=== PATIENT | male | born 1990 | race Caucasian/White ===

== ENCOUNTER 2017-05-17 15:01 | Emergency (ER) | payer MEDICAID ==
[~2017-05-17] VITALS: Ht 188 cm; Wt 86.2 kg
[2017-05-17] MEDS ORDERED: AUGMENTIN 875-1 EACH PO (16:10)
--- NOTE | 2017-05-17 16:11 | [facility]gent Treatment Center Report ---
History of Present Issue Date/Time Seen by Provider 05/17/17 1542 Visit Reason Pt arrived:Walked Presenting Problem:RT SIDE F FACE SWOLLEN AND COMPLAINS OF DENTAL PAIN X3 DAYS. ALSO WANTS TO GET LUMPS ON HIS LOWER BACK CHECKED BEEN THERE X2 WEEKS. Location if Accident: Onset of symptoms date/time:/ or onset unknown for:MEDICAL HX UNKNOWN Have you (or family members/close friends) recently traveled outside the [place]? N If Yes, where/when: Have you had exposure to infectious disease within the past month? TB? Other? Specify: Patient presents with with c/o tooth pain that started approximately 1 week ago. States he has had similiar issues for the last 2 years. Has not been to the dentist in several years and currently does not have a dentist. Rates pain "6/10 " and describes pain as aching and throbbing. Has been taking ibuprofen with mild relief. Denies fever/chills. ALLERGIES Coded Allergies: No Known Allergies (05/17/17) History Medical History General Angina: No VA: No Hypertension? No Hyperlipidemia? No CHF? No DVT? No PE? No COPD? No Asthma? No Anemia? No GERD? No Gastric ulcers? No GI Bleed? No Hernia? No Thyroid Problems? No Hypothyroidism? No CVA? No Seizures? No Diabetes? No UTI? No Stones? No BPH? No GB Disease: No Asplenia? No Hepatitis? No Sickle Cell Disease? No Arthritis? No Migraines? No Cataracts? No Glaucoma? No MRSA? No TB? No Anxiety? No Depression? No Cancer? No Site: N More? No Immunization HX DT/Tetanus 5-10 Years Ago Surgical Hx Previous Surgery?N Social History Smoking Hx Smoker: Current Every Day Smoker Tobacco: Yes Type Cigarettes Alcohol Alcohol: No Review of Systems All Other Systems Reviewed and Negative Constitutional denies chills, denies fever ENT dental caries (left lower molar). denies: ear pain, nose pain, nose congestion, throat pain. Respiratory denies shortness of breath, denies stridor, denies wheezing Cardiovascular denies palpitations Gastrointestinal denies diarrhea, denies nausea, denies vomiting Physical Exam Vital Signs Vital Signs Date Time Temp Pulse Resp B/P Pulse O2 O2 Flow FiO2 Ox Delivery Rate 05/17 1612 98.7 62 20 144/80 97 05/17 1508 98.7 62 20 144/80 97 General Appearance normal appearance, WD/WN, no apparent distress Eye Exam - bilateral eye normal exam Ear, Nose, Throat normal ENT inspection, dental caries (left lower molar) Neck non-tender, supple, full range of motion Respiratory Status Yes: chest symmetrical. No: respiratory distress. Lung Sounds bilateral: normal breath sounds. Cardiovascular regular rate/rhythm, no peripheral edema, no murmur, normal peripheral pulses Neurologic alert, normal exam, no motor/sensory deficits, oriented x 3 Mental status normal mood/affect Skin intact, normal color, warm/dry, two circular 3cm mobile lumps of mid back ( not visible); NTTP, no erythema/edema/ecchymosis; scattered pimples of upper back and neck Medical Decision Making LABS/Meds/Orders Pt receiving controlled substance in ED? No Results/Orders Current Medication Orders Sig/Zoe Start time Last Medication Dose Route Stop Time Status Admin Lidocaine HCl 0 .STK-MED ONE 05/17 1607 DC .ROUTE Benzocaine/Butamben/ 1 GM ONCE ONE 05/17 1600 DC 05/17 Tetracaine HCl TP 05/17 1601 1608 Lidocaine HCl 15 ML ONCE ONE 05/17 1600 DC 05/17 TP 05/17 1601 1608 Orders Procedure Date/time Status [facility] DENTAL BALL 05/17 1559 Active Departure Departure Time of Disposition 1559 Disposition DC Home or Self Care(routine) Clinical Impression Primary Impression: Tooth abscess Secondary Impressions: Lump of skin of back Condition STABLE Referrals Amado COLLIER,Sunita Mae Keep previously scheduled appointment with Dr. Fischer. TAMELA PERSAUD Contacted office to verify insurance is accepted. Patient to call to schedule appointment. Patient Instructions DI for Tooth Abscess Additional Instructions Begin antibiotic as soon as possible. Keep previously scheduled appointment with Dr. Fischer; be sure to discuss lumps of lower back. If symptoms persist or worsen follow-up at [facility] for further evaluation. Continue OTC medications and Dental Balls per package instructions as needed for pain. Discharge Counseling Counseled pt/family regarding diagnosis, medications/RX, home care, follow up needs Prescriptions Current Visit Scripts Amoxicillin/Potassium Clav (Augmentin [id number] Tablet) 1 EACH PO BID #[id number] TAB at 2041
[2017-05-17 16:12] VITALS: BP 144/80
== END 2017-05-17 16:12 | disposition home or self-care (01) ==
LOC: UTC 15:01
DX: K04.7 Periapical abscess without sinus (principal); R21 Rash and other nonspecific skin eruption; K02.9 Dental caries, unspecified; F17.210 Nicotine dependence, cigarettes, uncomplicated